=== PATIENT | male | born 1950 | race Caucasian/White ===

== ENCOUNTER 2020-01-23 12:05 | Outpatient (CLI) | payer MEDICARE, OTHER, SELFPAY ==
--- NOTE | ~2020-01-23 | XR_ITS ---
XR hip RT min 2V 01/23/2020 12:36 Indication: Right hip pain posteriorly for 6 months Procedure: 2 views right hip Comparison: No prior studies for comparison. Findings: There is mild osteoarthritis of the right hip. There is osteitis pubis. No acute fracture o r traumatic malalignment. No significant soft tissue abnormality. No radiopaque foreign bodies. Impression: 1: Mild osteoarthritis of the right hip. Reviewed, dictated and finalized at location B. Impression: 1: Mild osteoarthritis of the right hip.
--- NOTE | ~2020-01-23 | XR_ITS ---
EXAMINATION: XR lumbar spine 2-3V DATE: 01/23/2020 12:36 INDICATION: Posterior hip pain. TECHNIQUE: 3 views of lumbar spine were obtained. COMPARISON: Chest CT 01/29/2017 FINDINGS: S1 is a transitional segment. There is 3 mm retrolisthesis of L2 on L3 and L3 on L4, 3 mm a nterolisthesis of L4 on L5, and 3 mm retrolisthesis of L5 on S1. There is mild chronic anterior wedgi ng of L1 vertebral body. There is mildly decreased disc height at L3-L4 and moderately decreased disc height at L5-S1. There are endplate osteophytes at most levels. There is multilevel facet joint oste oarthritis, severe on the right at L4-L5. There are gallstones in the gallbladder. IMPRESSION: 1. Moderate lumbar spondylosis. Reviewed, dictated and finalized at location A.
== END 2020-01-23 12:06 | disposition home or self-care (01) ==
LOC: CHSIMG 12:12
PROVIDERS: PCP Internal Medicine; Visit Provider Internal Medicine
DX: M25.551 Pain in right hip (principal)
CPT/HCPCS: 72100; 73502

== ENCOUNTER 2020-10-14 15:12 | Outpatient (CLI) | payer MEDICARE, SELFPAY ==
--- NOTE | ~2020-10-14 | XR_ITS ---
EXAMINATION: XR shoulder LT min 2V DATE: 10/14/2020 15:36 INDICATION: Left shoulder pain. TECHNIQUE: 4 views of left shoulder were obtained. COMPARISON: Chest CT 01/29/2017 FINDINGS: Bone alignment is normal. No fracture. There is a chronic benign bone island in humeral hea d. There is mild osteoarthritis of glenohumeral joint and moderate osteoarthritis of acromioclavicula r joint. IMPRESSION: 1. Polyarticular osteoarthritis. Reviewed, dictated and finalized at location A.
== END 2020-10-14 15:13 | disposition home or self-care (01) ==
LOC: CHSIMG 15:18
PROVIDERS: PCP Internal Medicine; Visit Provider Nurse Practitioner Family
DX: M25.512 Pain in left shoulder (principal)
CPT/HCPCS: 73030

== ENCOUNTER 2021-03-18 09:57 | Outpatient (CLI) | payer MEDICARE, SELFPAY ==
[2021-03-18 11:42] LABS: Influenza A QL RT-PCR Negative (Negative); Influenza B QL RT-PCR Negative (Negative); SARS-CoV-2 RNA PCR Negative (Negative)
== END 2021-03-18 09:58 | disposition home or self-care (01) ==
LOC: CHSLAB 10:04
PROVIDERS: PCP Internal Medicine; Visit Provider Internal Medicine
DX: J06.9 Acute upper respiratory infection, unspecified (principal); Z20.822 Contact with and (suspected) exposure to COVID-19
CPT/HCPCS: 87502; C9803; U0003; U0005

== ENCOUNTER 2021-11-11 10:48 | Outpatient (CLI) | payer MEDICARE, SELFPAY ==
[2021-11-11 12:13] LABS: Influenza A QL RT-PCR Negative (Negative); Influenza B QL RT-PCR Negative (Negative); SARS-CoV-2 RNA PCR Negative (Negative)
== END 2021-11-11 10:49 | disposition home or self-care (01) ==
LOC: CHSLAB 10:49
PROVIDERS: PCP Internal Medicine; Visit Provider Internal Medicine
DX: J06.9 Acute upper respiratory infection, unspecified (principal); Z20.822 Contact with and (suspected) exposure to COVID-19
CPT/HCPCS: 87502; C9803; U0003; U0005

== ENCOUNTER 2022-05-15 13:58 | Outpatient (CLI) | payer MEDICARE, SELFPAY ==
--- NOTE | ~2022-05-15 | XR_ITS ---
EXAMINATION: XR chest 2V DATE: 05/15/2022 14:20 INDICATION: Right-sided pneumonitis. TECHNIQUE: Frontal and lateral views of the chest were obtained. COMPARISON: Chest single view 04/11/2017, chest CT 01/29/2017 FINDINGS: There is chronic marked elevation of right hemidiaphragm. There is mild atelectasis at the lung bases. No pleural effusion or pneumothorax. The heart size is normal. There are gallstones in th e gallbladder. IMPRESSION: 1. Chronic marked elevation of right hemidiaphragm. 2. Mild atelectasis at the lung bases. Reviewed, dictated and finalized at location A. ERTER OPERATOR
== END 2022-05-15 13:59 | disposition home or self-care (01) ==
LOC: CHSIMG 14:02
PROVIDERS: PCP Internal Medicine; Visit Provider Internal Medicine
DX: M25.512 Pain in left shoulder (principal); J18.9 Pneumonia, unspecified organism; R91.8 Other nonspecific abnormal finding of lung field; J98.11 Atelectasis
CPT/HCPCS: 71046

== ENCOUNTER 2022-05-25 08:42 | Outpatient (CLI) | payer MEDICARE, SELFPAY ==
--- NOTE | ~2022-05-25 | MR_ITS ---
MRI of the left shoulder Technique: Axial proton-density fat-sat images, coronal proton density fat-sat and T2 fat-sat images, and sagittal T1-weighted and T2 fat-sat images were acquired. Clinical History: Pain Findings: There is mild to moderate AC joint degenerative change, with minimal subacromial spur. Alisha coclavicular, coracoacromial, and coracohumeral ligaments are probably intact. There is severe supraspinatus and infraspinatus tendinosis. There is probable low to moderate grade a rticular surface fraying/partial-thickness tearing of the posterior supraspinatus tendon and most of the infraspinatus tendon. No full-thickness tear or tendon retraction identified. Subscapularis tendo n is intact. Tendon of the long head of the biceps is intact. No definite labral tear identified. Inferior glenohumeral ligament is intact. No fluid distention of the subacromial/subdeltoid bursa. Mi nimal glenohumeral joint effusion present. No significant osteoarthritis. No muscle atrophy or edema. Impression: Severe tendinosis of the supraspinatus and infraspinatus tendons with extensive low to moderate grade articular surface fraying/partial-thickness tearing of the posterior supraspinatus tendon, and most of the infraspinatus tendon. No full-thickness rotator cuff tear identified. No labral tear evident. Mild to moderate AC joint degenerative change. Reviewed, dictated and finalized at [facility]. I/85 Impression: Severe tendinosis of the supraspinatus and infraspinatus tendons with extensive low to moderate grade articular surface fraying/partial-thickness tearing of t he posterior supraspinatus tendon, and most of the infraspinatus tendon. No full-thickness rotator cuff tear identified. No labral tear evident. Mild to moderate AC joint degenerative change.
== END 2022-05-25 08:43 | disposition home or self-care (01) ==
LOC: CHSIMG 08:43
PROVIDERS: PCP Internal Medicine; Visit Provider Internal Medicine
DX: M25.512 Pain in left shoulder (principal); J18.9 Pneumonia, unspecified organism; M77.8 Other enthesopathies, not elsewhere classified
CPT/HCPCS: 73221